=== PATIENT | male | born 1965 | race African-American/Black ===

== ENCOUNTER 2017-07-21 07:39 | Day surgery (SDC) | payer MEDICAID ==
[~2017-07-21] VITALS: Ht 172.7 cm; Wt 71.7 kg
[2017-07-21 08:29] LABS: HEMATOCRIT 47.9 % (42.0-54.0); MCH 29.9 pg (26.0-34.0); MCHC 33.4 g/dL (31.0-37.0); MCV 89.4 fL (80.0-100.0); MEAN PLATELET VOLUME 10.7 fL (7.4-10.4); RBC 5.36 10x6/uL (4.20-6.10); RDW 16.2 % (11.5-14.5); WBC 5.4 10x3/uL (4.8-10.8)
[2017-07-21] MEDS ORDERED: NORVASC10 MG PO (08:36)
[2017-07-21] MEDS ORDERED: PRINIVIL20 MG PO (08:36)
[2017-07-21 08:37] VITALS: BP 102/70; Ht 172.7 cm; Wt 71.7 kg
== END 2017-07-21 10:00 | disposition home or self-care (01) ==
LOC: D.OPS 07:39 → D.PAN 11:00
PROVIDERS: Anesthesiology
DX: K64.9 Unspecified hemorrhoids (principal); Z53.09 Procedure and treatment not carried out because of other contraindication

== ENCOUNTER 2017-07-26 06:56 | Day surgery (SDC) | payer MEDICAID ==
[~2017-07-26] VITALS: Ht 172.7 cm; Wt 71.7 kg
[~2017-07-26 06:56] MED LIST: NORVASC10 MG PO; PRINIVIL20 MG PO
[2017-07-26 07:46] VITALS: BP 103/67; Ht 172.7 cm; Wt 71.7 kg
[2017-07-26 07:46] LABS: HEMATOCRIT 47.5 % (42.0-54.0); MCHC 33.7 g/dL (31.0-37.0); MEAN PLATELET VOLUME 10.5 fL (7.4-10.4); RBC 5.34 10x6/uL (4.20-6.10)
[2017-07-26] MEDS ORDERED: MIRALAX17 GM PO (16:18)
[2017-07-26 17:07] LABS: APTT 28.2 SECONDS (22.8-39.4); PROTIME 12.8 SECONDS (11.6-15.0)
[2017-07-26 17:30] LABS: ALBUMIN 3.2 g/dL (3.4-5.0); BILIRUBIN - DIRECT 0.09 mg/dL (0.00-0.30); BILIRUBIN - INDIRECT 0.5 mg/dL (0.00-1.00); BILIRUBIN - TOTAL 0.59 mg/dL (0.2-1.3); PROTEIN - SERUM 5.7 g/dL (6.4-8.2)
== END 2017-07-26 17:00 | disposition home or self-care (01) ==
LOC: D.OPS 06:56 → D.PAN 09:00 → D.OPS 09:30
PROVIDERS: Anesthesiology; Surgery
DX: C20 Malignant neoplasm of rectum (principal); D12.7 Benign neoplasm of rectosigmoid junction; Z01.812 Encounter for preprocedural laboratory examination

== ENCOUNTER → 2017-08-02 11:52 | Outpatient (CLI) | payer MEDICAID ==
[2017-07-26 07:46] VITALS: BMI 24.0
[~2017-08-02 11:52] MED LIST changes: +MIRALAX17 GM PO
== END | disposition home or self-care (01) ==
LOC: D.CT 11:52
DX: C18.9 Malignant neoplasm of colon, unspecified (principal); K62.5 Hemorrhage of anus and rectum

== ENCOUNTER 2017-08-09 05:29 | Day surgery (SDC) | payer MEDICAID ==
[~2017-08-09] VITALS: Ht 172.7 cm; Wt 71.7 kg
[2017-08-09] MEDS ORDERED: ULTRAM50 MG PO (06:08)
[2017-08-09] MEDS ORDERED: HYDROCODON-ACE1 EAC7 PO (06:08)
[2017-08-09 06:16] VITALS: BP 114/75; Ht 172.7 cm; Wt 71.7 kg
[2017-08-09 06:49] LABS: APTT 22.3 SECONDS (22.8-39.4); INR 0.86 (0.85-1.17); PROTIME 11.3 SECONDS (11.6-15.0)
[2017-08-09 07:08] LABS: BASOPHILS 1.1 % (0-2); EOSINOPHILS 7.8 % (0-7); HEMATOCRIT 40.1 % (42.0-54.0); HEMOGLOBIN 13.3 g/dL (13.5-17.5); IMMATURE GRANULOCYTES 0.2 % (0-5); LYMPHOCYTES 32.4 % (15-50); MCH 29.4 pg (26.0-34.0); MCHC 33.2 g/dL (31.0-37.0); MCV 88.5 fL (80.0-100.0); MEAN PLATELET VOLUME 10.7 fL (7.4-10.4); MONOCYTES 12.5 % (2-11); PLATELET COUNT 256 10x3/uL (130-400); RBC 4.53 10x6/uL (4.20-6.10); RDW 15.1 % (11.5-14.5); WBC 4.5 10x3/uL (4.8-10.8)
== END 2017-08-09 10:30 | disposition home or self-care (01) ==
LOC: D.OPS 05:29 → D.PAN 08:00 → D.OPS 08:00
PROVIDERS: Anesthesiology
DX: C20 Malignant neoplasm of rectum (principal); F17.200 Nicotine dependence, unspecified, uncomplicated; I10 Essential (primary) hypertension; Z01.812 Encounter for preprocedural laboratory examination

== ENCOUNTER → 2018-02-24 08:05 | Outpatient (CLI) | payer MEDICAID ==
[2017-08-09 06:16] VITALS: BMI 24.0
[~2018-02-24 08:05] MED LIST changes: +HYDROCODON-ACE1 EAC7 PO; +ULTRAM50 MG PO
== END | disposition home or self-care (01) ==
LOC: D.MRI 08:05
DX: C20 Malignant neoplasm of rectum (principal)

== ENCOUNTER 2018-03-30 10:00 | Inpatient (IN) | payer MEDICAID ==
[2018-03-29 10:43] LABS: BASOPHILS 0.9 % (0-2); EOSINOPHILS 5.7 % (0-7); HEMATOCRIT 37.1 % (42.0-54.0); HEMOGLOBIN 12.2 g/dL (13.5-17.5); MCH 29.3 pg (26.0-34.0); MCHC 32.9 g/dL (31.0-37.0); MEAN PLATELET VOLUME 10.4 fL (7.4-10.4); MONOCYTES 18.3 % (2-11); NEUTROPHILS 63.1 % (40-80); PLATELET COUNT 254 10x3/uL (130-400); RBC 4.17 10x6/uL (4.20-6.10); RDW 16.1 % (11.5-14.5); WBC 3.5 10x3/uL (4.8-10.8)
[2018-03-29 10:53] LABS: INR 0.94 (0.85-1.17); PROTIME 12.2 SECONDS (11.6-15.0)
[~2018-03-30] VITALS: Ht 172.7 cm; Wt 73.5 kg
--- NOTE | ~2018-03-30 | MORECARE ---
CASE MANAGEMENT DISCHARGE SUMMARY PATIENT: BRITTANI GR UNIT: [id number] ADM DATE: 03/30/18 AGE: 52 : 67 SEX: M ROOM/BED: D.2204 AUTHOR: JAZZY,DOC PHYSICIAN: REFERRING PHYSICIAN: SALEEM RODRIGUEZ MD DATE OF SERVICE: 04/22/18 Discharge Plan Patient Name: BRITTANI GR Facility: [facility]:[place] : 1965 Planned Disposition: Home Health Service Anticipated Discharge Date: Discharge Date: 04/20/2018 Expected LOS: 0 Initial Reviewer: [email or web address] Initial Review Date: 03/30/2018 Generated: 04/22/18 11:41 am Comments DCP- Discharge Planning Updated by [email or web address]: Christianne Galvan on 04/20/18 3:[address] Home wound vac approved/signed via patient and called Pat in [employer] for wound vac. Faxed signed sheet to [facility]. CM will continue to follow and assist with discharge planning/needs. DCP- Discharge Planning Updated by [email or web address]: Moriah Jones on 04/20/18 7:[address] HOME WOUND VAC ORDER, SPOKE WITH BENJAMIN AT [facility] DCP- Discharge Planning Updated by [email or web address]: Moriah Jones on 04/15/18 1:[address] PAMELA WITH WOUND CARE STATED THAT SHE HAS BEEN IN CONTACT WITH JOANNA CONNOLLY ([phone]) WITH [facility] FOR OSTOMY SUPPLIES. THIS IS WHO WE WILL CONTACT WHEN PATIENT IS DISCHARGED FOR SUPPLIES. DCP- Discharge Planning Updated by [email or web address]: Moriah Jones on 03/31/18 3:[address] Patient Name: BRITTANI GR Admission Status: Elective Accout number: [id number] Admission Date: 03-30-2018 : 1965 Admission Diagnosis: Attending: SALEEM RODRIGUEZ Current LOS: 1 Anticipated DC Date: Planned Disposition: Home Health Service Primary Insurance: MEDICAID [place] Discharge Planning Comments: CM met with patient to assess discharge planning needs. Patient stated that he is independent with his care at home and his will be the one to take him home. He has a new OSTOMY and will need home health with ostomy teaching and supplies. I have reached out to the Home Health's to see if they have a trained ostomy nurses. Martha PRETTY has experienced HH and will do teaching. Martha also stated that the DME *[facility] [phone]* takes B[place]. CM will call them about supplies. I also spoke with Anh the wound care nurse and she will also come and do teaching with patient. CM will continue to follow and assist with DC planning Brand Advisor: Moriah Jones DCP- Discharge Planning Updated by [email or web address]: Moriah Jones on 03/31/18 2:[address] attempted to see patient for assessment, pt sleeping will try again at a later time DCPIA - Discharge Planning Initial Assessment Updated by [email or web address]: Moriah Jones on 03/31/18 4:03 pm * Is the patient Alert and Oriented? Yes * How many steps to enter\exit or inside your home? * PCP Dr Mcmahon ([facility]) * Pharmacy [facility] * Preadmission Environment Home with Family * ADLs Independent * List name and contact numbers for known caregivers / representatives who currently or will assist patient after discharge: Tata () [phone] * Verbal permission to speak to the caregivers and representatives has been obtained from the patient. Yes * Community resources currently utilized None * Additional services required to return to the preadmission environment? Yes * Can the patient safely return to the preadmission environment? Yes * Has this patient been hospitalized within the prior 30 days at any hospital? No Last DP export: 04/20/18 3:11 Patient Name: BRITTANI GR Page 43843 at 1042 All edits/amendments must be made on the electronic document DICTATION DATE: 04/22/18 1041 RACING BOARD MARKER: JYOTI 04/22/18 1041 RPT#: [id number] DC DATE:04/20/18 STATUS: DIS IN [facility] [address] [place] [address] END OF REPORT
--- NOTE | ~2018-03-30 | OP ---
PATIENT NAME: BRITTANI GR MEDICAL RECORD: [id number] :[birth year] LOCATION:D.MS [id number] ADMISSION DATE:03/30/18 SURGEON: KACIE HERRERA MD DATE OF OPERATION: 03/30/2018 This is a cosurgeon case. Please see Dr. Rodriguez's note. PREOPERATIVE DIAGNOSIS: Locally advanced anorectal cancer. POSTOPERATIVE DIAGNOSIS: Locally advanced anorectal cancer. PROCEDURE: Abdominoperineal resection with end-colostomy and appendectomy. I did not participate in formation of the colostomy or the appendectomy. My portion of the operation was limited to the perineal approach and resection through the perineum. This is a cosurgeon case of Dr. KOFFI Rodriguez and Dr. Kacie Herrera. OPERATIVE COURSE: The patient was in a lithotomy position with adjustable stirrups. The perineum and abdomen had been sterilely prepped and draped. Dr. Rodriguez was proceeding with the laparotomy. I began by grasping the anus anteriorly and posteriorly with Allis retractors and incising the perianal skin in an oval fashion. I made sure to use the electrocautery to excise the anal sphincteric muscles. I then used a combination of blunt and sharp dissection to proceed to the coccyx posteriorly. I then performed a sharp dissection and some dissection with the open Super Jaw EnSeal device to take down the rectal stalks. I came around laterally around the rectum. Anteriorly, I grasped the anus and rectum and pulled it out, so that the plane between the prostate and the rectum was easily identifiable and I incised this sharply. There was no damage to the prostate gland. I continued my blunt dissection up in the presacral space. I bluntly dissected around the rectum laterally as well. It was at this point that Dr. Rodriguez had freed up almost all of the rectum superiorly. I was able to sofie the stapled off portion of the upper rectum and bring this out through the anus. A few lateral attachments were then divided with the EnSeal device. There had been no violation of the rectum during the resection. Hemostasis was achieved with electrocautery as well as with the EnSeal device. I excised some more of the perianal skin to ensure that we had a free margin. Grossly, it certainly appeared that we had a free margin at the anus. We irrigated with Betadine as well as hydrogen peroxide. The perineal wound was closed in several layers. The cephalad most layer was closed with multiple interrupted horizontal mattress #1 Vicryls. The muscular closure consisted of multiple interrupted horizontal mattress #1 Vicryls. The skin was approximated with multiple interrupted vertical mattress #[address] Rodriguez then was proceeding with closure of the abdomen as well as formation of the colostomy and performance of the appendectomy. TRANSINT:[id number] Voice Confirmation ID: [id number] DOCUMENT ID: [id number] OPERATIVE REPORT [id number] BRITTANI GR ROBERT MD at 1709 CC: SALEEM RODRIGUEZ MD [id number] DICTATION DATE: 04/02/18 1641 SALES REPRESENTATIVE MALT LIQUORS: 04/02/18 2145 ADM IN [facility] [address] [place] [address]
--- NOTE | ~2018-03-30 | MORECARE ---
CASE MANAGEMENT DISCHARGE SUMMARY PATIENT: BRITTANI GR UNIT: [id number] ADM DATE: 03/30/18 AGE: 52 : 67 SEX: M ROOM/BED: D.2204 AUTHOR: JAZZY,DOC PHYSICIAN: REFERRING PHYSICIAN: SALEEM RODRIGUEZ MD DATE OF SERVICE: 04/20/18 Discharge Plan Patient Name: BRITTANI GR Facility: [facility]:[place] : 1965 Planned Disposition: Home Health Service Anticipated Discharge Date: Discharge Date: Expected LOS: Initial Reviewer: [email or web address] Initial Review Date: 03/30/2018 Generated: 04/20/18 10:01 am Comments DCP- Discharge Planning Updated by [email or web address]: Moriah Jones on 04/20/18 7:[address] HOME WOUND VAC ORDER, SPOKE WITH BENJAMIN AT [facility] DCP- Discharge Planning Updated by [email or web address]: Moriah Jones on 04/15/18 1:[address] PAMELA WITH WOUND CARE STATED THAT SHE HAS BEEN IN CONTACT WITH JOANNA CONNOLLY ([phone]) WITH [facility] FOR OSTOMY SUPPLIES. THIS IS WHO WE WILL CONTACT WHEN PATIENT IS DISCHARGED FOR SUPPLIES. DCP- Discharge Planning Updated by [email or web address]: Moriah Jones on 03/31/18 3:[address] Patient Name: BRITTANI GR Admission Status: Elective Accout number: [id number] Admission Date: 03-30-2018 : 1965 Admission Diagnosis: Attending: SALEEM RODRIGUEZ Current LOS: 1 Anticipated DC Date: Planned Disposition: Home Health Service Primary Insurance: MEDICAID [place] Discharge Planning Comments: CM met with patient to assess discharge planning needs. Patient stated that he is independent with his care at home and his will be the one to take him home. He has a new OSTOMY and will need home health with ostomy teaching and supplies. I have reached out to the Home Health's to see if they have a trained ostomy nurses. Martha PRETTY has experienced HH and will do teaching. Martha also stated that the DME *[facility] [phone]* takes [place]. CM will call them about supplies. I also spoke with Anh the wound care nurse and she will also come and do teaching with patient. CM will continue to follow and assist with DC planning Cooler Conveyor Loader: Moriah Jones DCP- Discharge Planning Updated by [email or web address]: Moriah Jones on 03/31/18 2:[address] attempted to see patient for assessment, pt sleeping will try again at a later time DCPIA - Discharge Planning Initial Assessment Updated by [email or web address]: Moriah Jones on 03/31/18 4:03 pm * Is the patient Alert and Oriented? Yes * How many steps to enter\exit or inside your home? * PCP Dr Mcmahon ([facility]) * Pharmacy [facility] * Preadmission Environment Home with Family * ADLs Independent * List name and contact numbers for known caregivers / representatives who currently or will assist patient after discharge: Tata () [phone] * Verbal permission to speak to the caregivers and representatives has been obtained from the patient. Yes * Community resources currently utilized None * Additional services required to return to the preadmission environment? Yes * Can the patient safely return to the preadmission environment? Yes * Has this patient been hospitalized within the prior 30 days at any hospital? No Last DP export: 04/15/18 1:49 Patient Name: BRITTANI GR Page [id number] at 0901 All edits/amendments must be made on the electronic document DICTATION DATE: 04/20/18899 RIVERS [employer] LAKES BOATMAN: JYOTI 04/20/18899 RPT#: [id number] DC DATE: STATUS: ADM IN [facility] [address] [place] [address] END OF REPORT
--- NOTE | ~2018-03-30 | MORECARE ---
CASE MANAGEMENT DISCHARGE SUMMARY PATIENT: BRITTANI GR UNIT: [id number] ADM DATE: 03/30/18 AGE: 52 : 67 SEX: M ROOM/BED: D.2204 AUTHOR: JAZZY,DOC PHYSICIAN: REFERRING PHYSICIAN: SALEEM RODRIGUEZ MD DATE OF SERVICE: 04/04/18 Discharge Plan Patient Name: BRITTANI GR Facility: [facility]:[place] : 1965 Planned Disposition: Home Health Service Anticipated Discharge Date: Discharge Date: Expected LOS: Initial Reviewer: [email or web address] Initial Review Date: 03/30/2018 Generated: 04/04/18 1:17 pm Comments DCP- Discharge Planning Updated by [email or web address]: Moriah Jones on 03/31/18 3:[address] Patient Name: BRITTANI GR Admission Status: Elective Accout number: [id number] Admission Date: 03-30-2018 : 1965 Admission Diagnosis: Attending: SALEEM RODRIGUEZ Current LOS: 1 Anticipated DC Date: Planned Disposition: Home Health Service Primary Insurance: [place]ID [place] Discharge Planning Comments: CM met with patient to assess discharge planning needs. Patient stated that he is independent with his care at home and his will be the one to take him home. He has a new OSTOMY and will need home health with ostomy teaching and supplies. I have reached out to the Home Health's to see if they have a trained ostomy nurses. Martha PRETTY has experienced HH and will do teaching. Martha also stated that the [facility] *[facility] [phone]* takes [facility]. CM will call them about supplies. I also spoke with Anh the wound care nurse and she will also come and do teaching with patient. CM will continue to follow and assist with DC planning Instrumentation Fitter: Moriah Jones DCP- Discharge Planning Updated by [email or web address]: Moriah Jones on 03/31/18 2:[address] attempted to see patient for assessment, pt sleeping will try again at a later time DCPIA - Discharge Planning Initial Assessment Updated by [email or web address]: Moriah Jones on 03/31/18 4:03 pm * Is the patient Alert and Oriented? Yes * How many steps to enter\exit or inside your home? * PCP Dr Mcmahon ([facility]) * Pharmacy [facility] * Preadmission Environment Home with Family * ADLs Independent * List name and contact numbers for known caregivers / representatives who currently or will assist patient after discharge: Tata () [phone] * Verbal permission to speak to the caregivers and representatives has been obtained from the patient. Yes * Community resources currently utilized None * Additional services required to return to the preadmission environment? Yes * Can the patient safely return to the preadmission environment? Yes * Has this patient been hospitalized within the prior 30 days at any hospital? No External Providers External Provider: [facility] [employer] Next Contact Date: Service Request Date: Service Type: Resolution: Reviewer: Comments: Last DP export: 03/31/18 3:33 Patient Name: BRITTANI GR Page [phone] at 1217 All edits/amendments must be made on the electronic document DICTATION DATE: 04/04/181215 FIBERGLASS BONDING MACHINE TENDER: JYOTI 04/04/181215 RPT#: [id number] DC DATE: STATUS: ADM IN [facility] [address] [place] [address] END OF REPORT
--- NOTE | ~2018-03-30 | MORECARE ---
CASE MANAGEMENT DISCHARGE SUMMARY PATIENT: BRITTANI GR UNIT: [id number] ADM DATE: 03/30/18 AGE: 52 : 67 SEX: M ROOM/BED: D.2204 AUTHOR: JAZZY,DOC PHYSICIAN: REFERRING PHYSICIAN: SALEEM RODRIGUEZ MD DATE OF SERVICE: 04/15/18 Discharge Plan Patient Name: BRITTANI GR Facility: [facility]:[place] : 1965 Planned Disposition: Home Health Service Anticipated Discharge Date: Discharge Date: Expected LOS: Initial Reviewer: [email or web address] Initial Review Date: 03/30/2018 Generated: 04/15/18 3:49 pm Comments DCP- Discharge Planning Updated by [email or web address]: Moriah Jones on 04/15/18 1:[address] PAMELA WITH WOUND CARE STATED THAT SHE HAS BEEN IN CONTACT WITH JOANNA CONNOLLY ([phone]) WITH [facility] FOR OSTOMY SUPPLIES. THIS IS WHO WE WILL CONTACT WHEN PATIENT IS DISCHARGED FOR SUPPLIES. DCP- Discharge Planning Updated by [email or web address]: Moriah Jones on 03/31/18 3:[address] Patient Name: BRITTANI GR Admission Status: Elective Accout number: [id number] Admission Date: 03-30-2018 : 1965 Admission Diagnosis: Attending: SALEEM RODRIGUEZ Current LOS: 1 Anticipated DC Date: Planned Disposition: Home Health Service Primary Insurance: MEDICAID [place] Discharge Planning Comments: CM met with patient to assess discharge planning needs. Patient stated that he is independent with his care at home and his will be the one to take him home. He has a new OSTOMY and will need home health with ostomy teaching and supplies. I have reached out to the Home Health's to see if they have a trained ostomy nurses. Martha PRETTY has experienced HH and will do teaching. Martha also stated that the DME *[facility] [phone]* takes [place]. CM will call them about supplies. I also spoke with Anh the wound care nurse and she will also come and do teaching with patient. CM will continue to follow and assist with DC planning Electrolysis Engineer: Moriah Jones DCP- Discharge Planning Updated by [email or web address]: Moriah Jones on 03/31/18 2:[address] attempted to see patient for assessment, pt sleeping will try again at a later time DCPIA - Discharge Planning Initial Assessment Updated by [email or web address]: Moriah Jones on 03/31/18 4:03 pm * Is the patient Alert and Oriented? Yes * How many steps to enter\exit or inside your home? * PCP Dr Mcmahon ([facility]) * Pharmacy [facility] * Preadmission Environment Home with Family * ADLs Independent * List name and contact numbers for known caregivers / representatives who currently or will assist patient after discharge: Tata () [phone] * Verbal permission to speak to the caregivers and representatives has been obtained from the patient. Yes * Community resources currently utilized None * Additional services required to return to the preadmission environment? Yes * Can the patient safely return to the preadmission environment? Yes * Has this patient been hospitalized within the prior 30 days at any hospital? No Last DP export: 04/04/18 11:17 Patient Name: BRITTANI GR Page 83107 at 1449 All edits/amendments must be made on the electronic document DICTATION DATE: 04/15/181448 JOURNEYMAN PIPEFITTER: JYOTI 04/15/181448 RPT#: [id number] DC DATE: STATUS: ADM IN [facility] [address] [place] [address] END OF REPORT
--- NOTE | ~2018-03-30 | MORECARE ---
CASE MANAGEMENT DISCHARGE SUMMARY PATIENT: BRITTANI GR UNIT: [id number] ADM DATE: 03/30/18 AGE: 52 : 67 SEX: M ROOM/BED: D.2204 AUTHOR: JAZZY,DOC PHYSICIAN: REFERRING PHYSICIAN: SALEEM RODRIGUEZ MD DATE OF SERVICE: 04/20/18 Discharge Plan Patient Name: BRITTANI GR Facility: [facility]:[place] : 1965 Planned Disposition: Home Health Service Anticipated Discharge Date: Discharge Date: Expected LOS: Initial Reviewer: [email or web address] Initial Review Date: 03/30/2018 Generated: 04/20/18 5:11 pm Comments DCP- Discharge Planning Updated by [email or web address]: Christianne Galvan on 04/20/18 3:[address] Home wound vac approved/signed via patient and called Pat in [employer] for wound vac. Faxed signed sheet to [facility]. CM will continue to follow and assist with discharge planning/needs. DCP- Discharge Planning Updated by [email or web address]: Moriah Jones on 04/20/18 7:[address] HOME WOUND VAC ORDER, SPOKE WITH BENJAMIN AT [facility] DCP- Discharge Planning Updated by [email or web address]: Moriah Jones on 04/15/18 1:[address] PAMELA WITH WOUND CARE STATED THAT SHE HAS BEEN IN CONTACT WITH JOANNA CONNOLLY ([phone]) WITH [facility] FOR OSTOMY SUPPLIES. THIS IS WHO WE WILL CONTACT WHEN PATIENT IS DISCHARGED FOR SUPPLIES. DCP- Discharge Planning Updated by [id number]: Moriah Jones on 03/31/18 3:[address] Patient Name: BRITTANI GR Admission Status: Elective Accout number: [id number] Admission Date: 03-30-2018 : 1965 Admission Diagnosis: Attending: SALEEM RODRIGUEZ Current LOS: 1 Anticipated DC Date: Planned Disposition: Home Health Service Primary Insurance: MEDICAID [place] Discharge Planning Comments: CM met with patient to assess discharge planning needs. Patient stated that he is independent with his care at home and his will be the one to take him home. He has a new OSTOMY and will need home health with ostomy teaching and supplies. I have reached out to the Home Health's to see if they have a trained ostomy nurses. Martha SUKHWINDER has experienced HH and will do teaching. Martha also stated that the DME *[facility] [phone]* takes [place]. CM will call them about supplies. I also spoke with Anh the wound care nurse and she will also come and do teaching with patient. CM will continue to follow and assist with DC planning Clean Room Technician: Moriah Jones DCP- Discharge Planning Updated by [email or web address]: Moriah Jones on 03/31/18 2:[address] attempted to see patient for assessment, pt sleeping will try again at a later time DCPIA - Discharge Planning Initial Assessment Updated by [email or web address]: Moriah Jones on 03/31/18 4:03 pm * Is the patient Alert and Oriented? Yes * How many steps to enter\exit or inside your home? * PCP Dr Mcmahon ([facility]) * Pharmacy [facility] * Preadmission Environment Home with Family * ADLs Independent * List name and contact numbers for known caregivers / representatives who currently or will assist patient after discharge: Tata () [phone] * Verbal permission to speak to the caregivers and representatives has been obtained from the patient. Yes * Community resources currently utilized None * Additional services required to return to the preadmission environment? Yes * Can the patient safely return to the preadmission environment? Yes * Has this patient been hospitalized within the prior 30 days at any hospital? No Last DP export: 04/20/18 8:01 Patient Name: BRITTANI GR Page 11521 at 1611 All edits/amendments must be made on the electronic document DICTATION DATE: 04/20/181610 HIDE HANDLER: JYOTI 04/20/181610 RPT#: [id number] DC DATE: STATUS: ADM IN [facility] [address] [place] [address] END OF REPORT
[2018-03-30 10:36] VITALS: BP 145/78; BMI 24.6
[2018-03-30 20:29] VITALS: BP 120/79
[2018-03-31] VITALS (18 sets, daily range): BP systolic 108–146; BP diastolic 63–85; Ht 172.7 cm; Wt 73.5 kg
[2018-03-31 06:20] LABS: BASOPHILS 0 % (0-2); EOSINOPHILS 0 % (0-7); IMMATURE GRANULOCYTES 0.2 % (0-5); LYMPHOCYTES 3.6 % (15-50); MCH 29.3 pg (26.0-34.0); MCHC 32.9 g/dL (31.0-37.0); MCV 89.1 fL (80.0-100.0); MONOCYTES 11.3 % (2-11); NEUTROPHILS 84.9 % (40-80); RBC 2.56 10x6/uL (4.20-6.10); RDW 16.5 % (11.5-14.5); WBC 9.8 10x3/uL (4.8-10.8)
[2018-03-31 06:21] LABS: HEMATOCRIT 22.8 % (42.0-54.0); HEMOGLOBIN 7.5 g/dL (13.5-17.5); PLATELET COUNT 198 10x3/uL (130-400)
[2018-03-31 06:30] LABS: ANION GAP 13.5 mmol/L (8-16); CALCIUM 7.5 mg/dL (8.5-10.1); CREATININE - SERUM 1.5 mg/dL (0.6-1.3); MAGNESIUM - SERUM 1.6 mg/dL (1.8-2.4); POTASSIUM - SERUM 4.5 mmol/L (3.5-5.1)
[2018-04-01] VITALS: BP 136/81
[2018-04-01 04:00] VITALS: BP 164/93
[2018-04-01 06:05] LABS: BASOPHILS 0.1 % (0-2); EOSINOPHILS 0.1 % (0-7); HEMATOCRIT 24.8 % (42.0-54.0); HEMOGLOBIN 8.5 g/dL (13.5-17.5); IMMATURE GRANULOCYTES 0.2 % (0-5); LYMPHOCYTES 4.5 % (15-50); MCH 29.4 pg (26.0-34.0); MCHC 34.3 g/dL (31.0-37.0); MEAN PLATELET VOLUME 11.1 fL (7.4-10.4); MONOCYTES 11.9 % (2-11); NEUTROPHILS 83.2 % (40-80); RBC 2.89 10x6/uL (4.20-6.10); RDW 15.7 % (11.5-14.5); WBC 9.4 10x3/uL (4.8-10.8)
[2018-04-01 06:14] LABS: CALCIUM 7.7 mg/dL (8.5-10.1); CARBON DIOXIDE 28.2 mmol/L (21.0-32.0); CHLORIDE - SERUM 105 mmol/L (98-107); MAGNESIUM - SERUM 1.7 mg/dL (1.8-2.4); POTASSIUM - SERUM 3.9 mmol/L (3.5-5.1); SODIUM 138 mmol/L (136-145)
[2018-04-01 06:22] LABS: MCV 85.8 fL (80.0-100.0); PLATELET COUNT 157 10x3/uL (130-400)
[2018-04-01 06:25] LABS: GLUCOSE 135 mg/dL (74-106)
[2018-04-01 06:26] LABS: CALC OSMOLALITY 275 mosm/kg (275-300); CREATININE - SERUM 0.9 mg/dL (0.6-1.3); UREA NITROGEN 7 mg/dL (7-18); eGFR NON AFRICAN AMERICAN > 90 mL/min (90-120)
[2018-04-01 09:12] VITALS: BP 154/97
[2018-04-01 14:01] VITALS: BP 145/86
[2018-04-01 16:49] VITALS: BP 151/82
[2018-04-01 20:00] VITALS: BP 140/84
[2018-04-02] VITALS: BP 103/64
[2018-04-02 04:00] VITALS: BP 123/75
[2018-04-02 05:56] LABS: BASOPHILS 0.1 % (0-2); EOSINOPHILS 1.6 % (0-7); HEMATOCRIT 23.5 % (42.0-54.0); HEMOGLOBIN 7.9 g/dL (13.5-17.5); IMMATURE GRANULOCYTES 0.2 % (0-5); MCH 28.9 pg (26.0-34.0); MCHC 33.6 g/dL (31.0-37.0); MCV 86.1 fL (80.0-100.0); MEAN PLATELET VOLUME 11.2 fL (7.4-10.4); MONOCYTES 8.7 % (2-11); NEUTROPHILS 84.4 % (40-80); PLATELET COUNT 173 10x3/uL (130-400); RBC 2.73 10x6/uL (4.20-6.10); RDW 15.7 % (11.5-14.5); WBC 9.6 10x3/uL (4.8-10.8)
[2018-04-02 06:28] LABS: CALC OSMOLALITY 275 mosm/kg (275-300); CALCIUM 8.4 mg/dL (8.5-10.1); CARBON DIOXIDE 30.7 mmol/L (21.0-32.0); CHLORIDE - SERUM 104 mmol/L (98-107); CREATININE - SERUM 0.9 mg/dL (0.6-1.3); GLUCOSE 100 mg/dL (74-106); POTASSIUM - SERUM 3.9 mmol/L (3.5-5.1); SODIUM 140 mmol/L (136-145); UREA NITROGEN 4 mg/dL (7-18); eGFR NON AFRICAN AMERICAN > 90 mL/min (90-120)
[2018-04-02 12:33] VITALS: BP 145/81
[2018-04-02 17:34] VITALS: BP 155/72
[2018-04-02 19:50] VITALS: BP 150/89
[2018-04-03] VITALS: BP 123/79
[2018-04-03 04:00] VITALS: BP 122/80
[2018-04-03 07:53] LABS: BASOPHILS 0.2 % (0-2); EOSINOPHILS 3.6 % (0-7); HEMATOCRIT 24.5 % (42.0-54.0); HEMOGLOBIN 8.2 g/dL (13.5-17.5); IMMATURE GRANULOCYTES 0.5 % (0-5); LYMPHOCYTES 3.8 % (15-50); MCH 29.2 pg (26.0-34.0); MCHC 33.5 g/dL (31.0-37.0); MCV 87.2 fL (80.0-100.0); MEAN PLATELET VOLUME 11.2 fL (7.4-10.4); MONOCYTES 12.4 % (2-11); NEUTROPHILS 79.5 % (40-80); RBC 2.81 10x6/uL (4.20-6.10); RDW 15.2 % (11.5-14.5); WBC 8.1 10x3/uL (4.8-10.8)
[2018-04-03 07:56] LABS: PLATELET COUNT 229 10x3/uL (130-400)
[2018-04-03 08:14] LABS: CALC OSMOLALITY 275 mosm/kg (275-300); CALCIUM 8.3 mg/dL (8.5-10.1); CARBON DIOXIDE 31.6 mmol/L (21.0-32.0); CHLORIDE - SERUM 104 mmol/L (98-107); GLUCOSE 107 mg/dL (74-106); MAGNESIUM - SERUM 1.9 mg/dL (1.8-2.4); POTASSIUM - SERUM 3.7 mmol/L (3.5-5.1); SODIUM 140 mmol/L (136-145); UREA NITROGEN 4 mg/dL (7-18); eGFR NON AFRICAN AMERICAN 84 mL/min (90-120)
[2018-04-03 08:27] VITALS: BP 124/86
[2018-04-03 12:18] VITALS: BP 141/86
[2018-04-03 16:49] VITALS: BP 135/87
[2018-04-03 20:00] VITALS: BP 152/85
[2018-04-04] VITALS: BP 140/87
[2018-04-04 04:00] VITALS: BP 122/82
[2018-04-04 06:36] LABS: BASOPHILS 0.3 % (0-2); EOSINOPHILS 5.1 % (0-7); HEMATOCRIT 24.4 % (42.0-54.0); HEMOGLOBIN 8.2 g/dL (13.5-17.5); IMMATURE GRANULOCYTES 0.5 % (0-5); LYMPHOCYTES 13.1 % (15-50); MCH 29.5 pg (26.0-34.0); MCHC 33.6 g/dL (31.0-37.0); MCV 87.8 fL (80.0-100.0); MEAN PLATELET VOLUME 10.7 fL (7.4-10.4); MONOCYTES 10.2 % (2-11); NEUTROPHILS 70.8 % (40-80); RBC 2.78 10x6/uL (4.20-6.10); RDW 14.9 % (11.5-14.5); WBC 7.3 10x3/uL (4.8-10.8)
[2018-04-04 06:41] LABS: PLATELET COUNT 298 10x3/uL (130-400)
[2018-04-04 06:48] LABS: CALC OSMOLALITY 276 mosm/kg (275-300); CALCIUM 8.4 mg/dL (8.5-10.1); CARBON DIOXIDE 31.3 mmol/L (21.0-32.0); CHLORIDE - SERUM 104 mmol/L (98-107); CREATININE - SERUM 0.8 mg/dL (0.6-1.3); GLUCOSE 120 mg/dL (74-106); MAGNESIUM - SERUM 1.7 mg/dL (1.8-2.4); POTASSIUM - SERUM 3.7 mmol/L (3.5-5.1); SODIUM 140 mmol/L (136-145); UREA NITROGEN 4 mg/dL (7-18); eGFR NON AFRICAN AMERICAN > 90 mL/min (90-120)
[2018-04-04 07:47] VITALS: BP 156/90
[2018-04-04 11:41] VITALS: BP 172/104
[2018-04-04 20:18] VITALS: BP 160/95
[2018-04-05 04:11] VITALS: BP 184/80
[2018-04-05 08:45] VITALS: BP 171/108
[2018-04-05 10:04] LABS: BASOPHILS 0.1 % (0-2); EOSINOPHILS 0.4 % (0-7); IMMATURE GRANULOCYTES 0.2 % (0-5); LYMPHOCYTES 7.5 % (15-50); MCH 29.1 pg (26.0-34.0); MCHC 33.2 g/dL (31.0-37.0); MCV 87.6 fL (80.0-100.0); MEAN PLATELET VOLUME 10.4 fL (7.4-10.4); MONOCYTES 8.2 % (2-11); NEUTROPHILS 83.6 % (40-80); PLATELET COUNT 319 10x3/uL (130-400); RBC 2.51 10x6/uL (4.20-6.10); RDW 15.1 % (11.5-14.5); WBC 8.3 10x3/uL (4.8-10.8)
[2018-04-05 10:09] LABS: HEMOGLOBIN 7.3 g/dL (13.5-17.5)
[2018-04-05 10:12] LABS: CALCIUM 8.6 mg/dL (8.5-10.1); CARBON DIOXIDE 36.5 mmol/L (21.0-32.0); CHLORIDE - SERUM 96 mmol/L (98-107); GLUCOSE 127 mg/dL (74-106); SODIUM 138 mmol/L (136-145); eGFR NON AFRICAN AMERICAN 75 mL/min (90-120)
[2018-04-05 10:15] LABS: CALC OSMOLALITY 277 mosm/kg (275-300); CREATININE - SERUM 1.1 mg/dL (0.6-1.3); UREA NITROGEN 12 mg/dL (7-18)
[2018-04-05 12:45] VITALS: BP 154/101
[2018-04-05 16:53] VITALS: BP 168/101
[2018-04-05 20:16] VITALS: BP 154/101
[2018-04-06 03:31] VITALS: BP 180/94
[2018-04-06 04:23] LABS: BASOPHILS 0.1 % (0-2); EOSINOPHILS 0.3 % (0-7); IMMATURE GRANULOCYTES 0.4 % (0-5); LYMPHOCYTES 9.4 % (15-50); MCV 87.9 fL (80.0-100.0); MEAN PLATELET VOLUME 10.3 fL (7.4-10.4); NEUTROPHILS 82.8 % (40-80); RDW 15.4 % (11.5-14.5)
[2018-04-06 04:44] LABS: HEMATOCRIT 30.6 % (42.0-54.0); HEMOGLOBIN 10.1 g/dL (13.5-17.5); PLATELET COUNT 440 10x3/uL (130-400); RBC 3.48 10x6/uL (4.20-6.10); WBC 10.5 10x3/uL (4.8-10.8)
[2018-04-06 05:35] LABS: CALCIUM 8.5 mg/dL (8.5-10.1); CARBON DIOXIDE 33.4 mmol/L (21.0-32.0); POTASSIUM - SERUM 4.4 mmol/L (3.5-5.1)
[2018-04-06 05:38] LABS: CREATININE - SERUM 1.6 mg/dL (0.6-1.3)
[2018-04-06 08:42] VITALS: BP 159/105
[2018-04-06 13:03] VITALS: BP 155/84
[2018-04-06 15:39] LABS: BASOPHILS 0.2 % (0-2); EOSINOPHILS 1.8 % (0-7); IMMATURE GRANULOCYTES 0.3 % (0-5); LYMPHOCYTES 13.9 % (15-50); MCH 28.6 pg (26.0-34.0); MCHC 32.6 g/dL (31.0-37.0); MCV 87.7 fL (80.0-100.0); MEAN PLATELET VOLUME 9.5 fL (7.4-10.4); MONOCYTES 6.2 % (2-11); NEUTROPHILS 77.6 % (40-80); PLATELET COUNT 398 10x3/uL (130-400); RDW 15.4 % (11.5-14.5); WBC 9.2 10x3/uL (4.8-10.8)
[2018-04-06 15:44] LABS: HEMATOCRIT 23.6 % (42.0-54.0); HEMOGLOBIN 7.7 g/dL (13.5-17.5); RBC 2.69 10x6/uL (4.20-6.10)
[2018-04-06 15:45] VITALS: BP 108/74
[2018-04-06 16:02] LABS: BILIRUBIN - TOTAL 0.34 mg/dL (0.2-1.3); CALCIUM 7.6 mg/dL (8.5-10.1); CREATININE - SERUM 1.2 mg/dL (0.6-1.3); PROTEIN - SERUM 4.7 g/dL (6.4-8.2)
[2018-04-06 21:47] VITALS: BP 130/89
[2018-04-07 00:58] VITALS: BP 154/84
[2018-04-07 05:11] VITALS: BP 145/96
[2018-04-07 06:23] LABS: BASOPHILS 0.2 % (0-2); EOSINOPHILS 2.4 % (0-7); HEMATOCRIT 27.1 % (42.0-54.0); HEMOGLOBIN 8.7 g/dL (13.5-17.5); IMMATURE GRANULOCYTES 0.3 % (0-5); LYMPHOCYTES 12.9 % (15-50); MCH 28.5 pg (26.0-34.0); MCHC 32.1 g/dL (31.0-37.0); MCV 88.9 fL (80.0-100.0); MONOCYTES 5.5 % (2-11); NEUTROPHILS 78.7 % (40-80); RBC 3.05 10x6/uL (4.20-6.10); RDW 15.3 % (11.5-14.5); WBC 9.9 10x3/uL (4.8-10.8)
[2018-04-07 06:26] LABS: PLATELET COUNT 556 10x3/uL (130-400)
[2018-04-07 06:47] LABS: CALC OSMOLALITY 278 mosm/kg (275-300); CARBON DIOXIDE 35.3 mmol/L (21.0-32.0); CHLORIDE - SERUM 102 mmol/L (98-107); GLUCOSE 130 mg/dL (74-106); POTASSIUM - SERUM 3.6 mmol/L (3.5-5.1); SODIUM 138 mmol/L (136-145); eGFR NON AFRICAN AMERICAN 84 mL/min (90-120)
[2018-04-07 06:49] LABS: UREA NITROGEN 14 mg/dL (7-18)
[2018-04-07 09:10] VITALS: BP 140/101
[2018-04-07 13:20] VITALS: BP 139/93
[2018-04-07 14:24] LABS: MAGNESIUM - SERUM 2.4 mg/dL (1.8-2.4); PHOSPHOROUS 3.4 mg/dL (2.5-4.9)
[2018-04-07 16:45] VITALS: BP 143/91
[2018-04-07 21:17] VITALS: BP 139/88
[2018-04-08 05:01] VITALS: BP 141/88
[2018-04-08 06:02] LABS: BASOPHILS 0.2 % (0-2); EOSINOPHILS 1.7 % (0-7); HEMATOCRIT 26.4 % (42.0-54.0); HEMOGLOBIN 8.5 g/dL (13.5-17.5); IMMATURE GRANULOCYTES 0.5 % (0-5); LYMPHOCYTES 9.6 % (15-50); MCH 28.6 pg (26.0-34.0); MCHC 32.2 g/dL (31.0-37.0); MCV 88.9 fL (80.0-100.0); MONOCYTES 4.7 % (2-11); NEUTROPHILS 83.3 % (40-80); PLATELET COUNT 602 10x3/uL (130-400); RBC 2.97 10x6/uL (4.20-6.10); WBC 12.7 10x3/uL (4.8-10.8)
[2018-04-08 06:12] LABS: CALC OSMOLALITY 288 mosm/kg (275-300); CALCIUM 8.3 mg/dL (8.5-10.1); CARBON DIOXIDE 37.2 mmol/L (21.0-32.0); CHLORIDE - SERUM 104 mmol/L (98-107); CREATININE - SERUM 0.8 mg/dL (0.6-1.3); GLUCOSE 128 mg/dL (74-106); POTASSIUM - SERUM 4.1 mmol/L (3.5-5.1); SODIUM 144 mmol/L (136-145); UREA NITROGEN 13 mg/dL (7-18); eGFR NON AFRICAN AMERICAN > 90 mL/min (90-120)
[2018-04-08 08:23] LABS: MAGNESIUM - SERUM 2.2 mg/dL (1.8-2.4); PHOSPHOROUS 3.2 mg/dL (2.5-4.9)
[2018-04-08 08:43] VITALS: BP 131/89
[2018-04-08 12:30] VITALS: BP 127/80
[2018-04-08 16:52] VITALS: BP 137/83
[2018-04-08 20:00] VITALS: BP 137/80
[2018-04-09] VITALS: BP 146/84
[2018-04-09 04:00] VITALS: BP 147/91
[2018-04-09 06:35] LABS: CALC OSMOLALITY 282 mosm/kg (275-300); CALCIUM 8.2 mg/dL (8.5-10.1); CARBON DIOXIDE 33.1 mmol/L (21.0-32.0); CHLORIDE - SERUM 101 mmol/L (98-107); CREATININE - SERUM 0.8 mg/dL (0.6-1.3); GLUCOSE 149 mg/dL (74-106); POTASSIUM - SERUM 4.1 mmol/L (3.5-5.1); SODIUM 140 mmol/L (136-145); UREA NITROGEN 16 mg/dL (7-18); eGFR NON AFRICAN AMERICAN > 90 mL/min (90-120)
[2018-04-09 06:37] LABS: BASOPHILS 0.1 % (0-2); EOSINOPHILS 0.8 % (0-7); HEMATOCRIT 25.2 % (42.0-54.0); HEMOGLOBIN 8.2 g/dL (13.5-17.5); IMMATURE GRANULOCYTES 0.3 % (0-5); LYMPHOCYTES 7.6 % (15-50); MCH 28.7 pg (26.0-34.0); MCHC 32.5 g/dL (31.0-37.0); MCV 88.1 fL (80.0-100.0); MEAN PLATELET VOLUME 10.3 fL (7.4-10.4); MONOCYTES 3.5 % (2-11); NEUTROPHILS 87.7 % (40-80); PLATELET COUNT 629 10x3/uL (130-400); RBC 2.86 10x6/uL (4.20-6.10); RDW 15.1 % (11.5-14.5); WBC 14.1 10x3/uL (4.8-10.8)
[2018-04-09 09:08] LABS: MAGNESIUM - SERUM 2.4 mg/dL (1.8-2.4); PHOSPHOROUS 3.5 mg/dL (2.5-4.9)
[2018-04-09 09:37] VITALS: BP 136/91
[2018-04-09 16:42] VITALS: BP 139/96
[2018-04-09 19:51] VITALS: BP 147/93
[2018-04-10] VITALS: BP 137/91
[2018-04-10 04:28] LABS: HEMATOCRIT 25.6 % (42.0-54.0); HEMOGLOBIN 8.3 g/dL (13.5-17.5); MCH 28.5 pg (26.0-34.0); MCHC 32.4 g/dL (31.0-37.0); MEAN PLATELET VOLUME 9.7 fL (7.4-10.4); PLATELET COUNT 644 10x3/uL (130-400); RBC 2.91 10x6/uL (4.20-6.10); RDW 15.1 % (11.5-14.5); WBC 20.7 10x3/uL (4.8-10.8)
[2018-04-10 04:34] LABS: BASOPHILS 1 % (0-2); EOSINOPHILS 1 % (0-7); LYMPHOCYTES 6 % (15-50); MONOCYTES 3 % (2-11); NEUTROPHILS 87 % (40-80)
[2018-04-10 04:35] LABS: PLATELET ESTIMATE INCREASED
[2018-04-10 04:52] LABS: CALC OSMOLALITY 283 mosm/kg (275-300); CALCIUM 8.5 mg/dL (8.5-10.1); CARBON DIOXIDE 31.8 mmol/L (21.0-32.0); CHLORIDE - SERUM 101 mmol/L (98-107); CREATININE - SERUM 0.9 mg/dL (0.6-1.3); GLUCOSE 116 mg/dL (74-106); MAGNESIUM - SERUM 2.4 mg/dL (1.8-2.4); PHOSPHOROUS 3.6 mg/dL (2.5-4.9); POTASSIUM - SERUM 3.8 mmol/L (3.5-5.1); SODIUM 141 mmol/L (136-145); UREA NITROGEN 18 mg/dL (7-18); eGFR NON AFRICAN AMERICAN > 90 mL/min (90-120)
[2018-04-10 09:22] VITALS: BP 147/94
[2018-04-10 15:23] VITALS: BP 141/75
[2018-04-10 19:56] VITALS: BP 140/89
[2018-04-11] VITALS: BP 137/89
[2018-04-11 04:07] LABS: BASOPHILS 0.2 % (0-2); EOSINOPHILS 1.8 % (0-7); HEMATOCRIT 23.7 % (42.0-54.0); HEMOGLOBIN 7.6 g/dL (13.5-17.5); IMMATURE GRANULOCYTES 0.3 % (0-5); LYMPHOCYTES 6.7 % (15-50); MCH 28.5 pg (26.0-34.0); MCHC 32.1 g/dL (31.0-37.0); MCV 88.8 fL (80.0-100.0); MONOCYTES 6.3 % (2-11); NEUTROPHILS 84.7 % (40-80); PLATELET COUNT 659 10x3/uL (130-400); RBC 2.67 10x6/uL (4.20-6.10); RDW 15.4 % (11.5-14.5)
[2018-04-11 04:09] LABS: WBC 11.7 10x3/uL (4.8-10.8)
[2018-04-11 06:28] LABS: CALC OSMOLALITY 288 mosm/kg (275-300); CALCIUM 8.4 mg/dL (8.5-10.1); CHLORIDE - SERUM 106 mmol/L (98-107); CREATININE - SERUM 0.8 mg/dL (0.6-1.3); GLUCOSE 139 mg/dL (74-106); MAGNESIUM - SERUM 2.2 mg/dL (1.8-2.4); PHOSPHOROUS 4.1 mg/dL (2.5-4.9); SODIUM 143 mmol/L (136-145); UREA NITROGEN 19 mg/dL (7-18); eGFR NON AFRICAN AMERICAN > 90 mL/min (90-120)
[2018-04-11 06:30] LABS: POTASSIUM - SERUM 4.4 mmol/L (3.5-5.1)
[2018-04-11 08:52] VITALS: BP 152/86
[2018-04-11 12:32] VITALS: BP 134/85
[2018-04-11 16:39] VITALS: BP 147/85
[2018-04-11 21:25] VITALS: BP 132/77
[2018-04-12 05:09] LABS: CALC OSMOLALITY 288 mosm/kg (275-300); CALCIUM 8.3 mg/dL (8.5-10.1); CARBON DIOXIDE 28.4 mmol/L (21.0-32.0); CHLORIDE - SERUM 106 mmol/L (98-107); CREATININE - SERUM 0.9 mg/dL (0.6-1.3); GLUCOSE 102 mg/dL (74-106); MAGNESIUM - SERUM 2.1 mg/dL (1.8-2.4); PHOSPHOROUS 4.4 mg/dL (2.5-4.9); POTASSIUM - SERUM 4.2 mmol/L (3.5-5.1); SODIUM 144 mmol/L (136-145); UREA NITROGEN 17 mg/dL (7-18); eGFR NON AFRICAN AMERICAN > 90 mL/min (90-120)
[2018-04-12 08:07] LABS: BASOPHILS 0.2 % (0-2); EOSINOPHILS 3.4 % (0-7); HEMATOCRIT 24.2 % (42.0-54.0); HEMOGLOBIN 7.6 g/dL (13.5-17.5); IMMATURE GRANULOCYTES 0.1 % (0-5); LYMPHOCYTES 3.5 % (15-50); MCH 28.3 pg (26.0-34.0); MCHC 31.4 g/dL (31.0-37.0); MEAN PLATELET VOLUME 10.4 fL (7.4-10.4); NEUTROPHILS 80.8 % (40-80); PLATELET COUNT 616 10x3/uL (130-400); RBC 2.69 10x6/uL (4.20-6.10); RDW 15.7 % (11.5-14.5); WBC 9.9 10x3/uL (4.8-10.8)
[2018-04-12 08:26] VITALS: BP 145/93
[2018-04-12 12:00] VITALS: BP 126/85
[2018-04-12 16:09] VITALS: BP 137/87
[2018-04-12 21:21] VITALS: BP 142/81
[2018-04-13 05:10] VITALS: BP 139/86
[2018-04-13 06:04] LABS: CALC OSMOLALITY 288 mosm/kg (275-300); CALCIUM 8.5 mg/dL (8.5-10.1); CARBON DIOXIDE 27.6 mmol/L (21.0-32.0); CHLORIDE - SERUM 107 mmol/L (98-107); CREATININE - SERUM 0.9 mg/dL (0.6-1.3); GLUCOSE 90 mg/dL (74-106); MAGNESIUM - SERUM 1.9 mg/dL (1.8-2.4); PHOSPHOROUS 4.4 mg/dL (2.5-4.9); POTASSIUM - SERUM 3.6 mmol/L (3.5-5.1); SODIUM 145 mmol/L (136-145); UREA NITROGEN 13 mg/dL (7-18); eGFR NON AFRICAN AMERICAN > 90 mL/min (90-120)
[2018-04-13 06:55] LABS: BASOPHILS 0.5 % (0-2); EOSINOPHILS 4.5 % (0-7); HEMATOCRIT 21.6 % (42.0-54.0); LYMPHOCYTES 17.1 % (15-50); MCH 27.9 pg (26.0-34.0); MCHC 31.9 g/dL (31.0-37.0); MEAN PLATELET VOLUME 10.6 fL (7.4-10.4); MONOCYTES 7.8 % (2-11); NEUTROPHILS 70.1 % (40-80); PLATELET COUNT 596 10x3/uL (130-400); RBC 2.47 10x6/uL (4.20-6.10); RDW 15.3 % (11.5-14.5)
[2018-04-13 06:56] LABS: HEMOGLOBIN 6.9 g/dL (13.5-17.5); MCV 87.4 fL (80.0-100.0)
[2018-04-13 08:30] VITALS: BP 139/94
[2018-04-13 12:45] VITALS: BP 141/90
[2018-04-13 20:49] VITALS: BP 132/89
[2018-04-14 03:45] VITALS: BP 160/93
[2018-04-14 08:49] VITALS: BP 132/94
[2018-04-14 09:39] LABS: CALCIUM 8.4 mg/dL (8.5-10.1); CARBON DIOXIDE 27.3 mmol/L (21.0-32.0); CHLORIDE - SERUM 105 mmol/L (98-107); CREATININE - SERUM 0.8 mg/dL (0.6-1.3); MAGNESIUM - SERUM 1.7 mg/dL (1.8-2.4); PHOSPHOROUS 4.1 mg/dL (2.5-4.9); POTASSIUM - SERUM 3.9 mmol/L (3.5-5.1); SODIUM 142 mmol/L (136-145); eGFR NON AFRICAN AMERICAN > 90 mL/min (90-120)
[2018-04-14 09:43] LABS: CALC OSMOLALITY 289 mosm/kg (275-300); GLUCOSE 257 mg/dL (74-106); UREA NITROGEN 8 mg/dL (7-18)
[2018-04-14 09:53] LABS: BASOPHILS 0.2 % (0-2); EOSINOPHILS 2.2 % (0-7); IMMATURE GRANULOCYTES 0.2 % (0-5); LYMPHOCYTES 10.4 % (15-50); MCH 28.4 pg (26.0-34.0); MCHC 32.3 g/dL (31.0-37.0); MCV 87.8 fL (80.0-100.0); MEAN PLATELET VOLUME 10.6 fL (7.4-10.4); MONOCYTES 9.3 % (2-11); NEUTROPHILS 77.7 % (40-80); PLATELET COUNT 614 10x3/uL (130-400); RBC 2.96 10x6/uL (4.20-6.10); RDW 14.9 % (11.5-14.5)
[2018-04-14 09:54] LABS: HEMOGLOBIN 8.4 g/dL (13.5-17.5); WBC 9.6 10x3/uL (4.8-10.8)
[2018-04-14 16:45] VITALS: BP 158/93
[2018-04-14 21:05] VITALS: BP 137/85
[2018-04-15 04:35] VITALS: BP 144/88
[2018-04-15 04:40] LABS: BASOPHILS 0.2 % (0-2); EOSINOPHILS 2.6 % (0-7); HEMATOCRIT 25.3 % (42.0-54.0); HEMOGLOBIN 8.2 g/dL (13.5-17.5); IMMATURE GRANULOCYTES 0.2 % (0-5); LYMPHOCYTES 12.4 % (15-50); MCH 28.1 pg (26.0-34.0); MCHC 32.4 g/dL (31.0-37.0); MCV 86.6 fL (80.0-100.0); MEAN PLATELET VOLUME 10.4 fL (7.4-10.4); MONOCYTES 7.8 % (2-11); NEUTROPHILS 76.8 % (40-80); PLATELET COUNT 569 10x3/uL (130-400); RBC 2.92 10x6/uL (4.20-6.10); RDW 14.7 % (11.5-14.5); WBC 9.1 10x3/uL (4.8-10.8)
[2018-04-15 04:51] LABS: CALCIUM 8.3 mg/dL (8.5-10.1); CARBON DIOXIDE 29.5 mmol/L (21.0-32.0); CHLORIDE - SERUM 105 mmol/L (98-107); CREATININE - SERUM 0.9 mg/dL (0.6-1.3); MAGNESIUM - SERUM 1.5 mg/dL (1.8-2.4); PHOSPHOROUS 4.1 mg/dL (2.5-4.9); SODIUM 142 mmol/L (136-145); UREA NITROGEN 9 mg/dL (7-18); eGFR NON AFRICAN AMERICAN > 90 mL/min (90-120)
[2018-04-15 04:55] LABS: CALC OSMOLALITY 284 mosm/kg (275-300); GLUCOSE 157 mg/dL (74-106); POTASSIUM - SERUM 3.1 mmol/L (3.5-5.1)
[2018-04-15 08:21] VITALS: BP 150/87
[2018-04-15 12:09] VITALS: BP 143/89
[2018-04-15 12:36] VITALS: BP 143/89
[2018-04-15 16:30] VITALS: BP 138/88
[2018-04-15 20:24] VITALS: BP 157/94
[2018-04-16 05:02] VITALS: BP 135/92
[2018-04-16 05:43] LABS: BASOPHILS 0.3 % (0-2); EOSINOPHILS 4.6 % (0-7); HEMATOCRIT 25.9 % (42.0-54.0); HEMOGLOBIN 8.5 g/dL (13.5-17.5); IMMATURE GRANULOCYTES 0.4 % (0-5); LYMPHOCYTES 14.7 % (15-50); MCH 28.5 pg (26.0-34.0); MCHC 32.8 g/dL (31.0-37.0); MCV 86.9 fL (80.0-100.0); MEAN PLATELET VOLUME 10.5 fL (7.4-10.4); MONOCYTES 7.9 % (2-11); NEUTROPHILS 72.1 % (40-80); PLATELET COUNT 575 10x3/uL (130-400); RBC 2.98 10x6/uL (4.20-6.10); RDW 14.8 % (11.5-14.5); WBC 6.9 10x3/uL (4.8-10.8)
[2018-04-16 06:14] LABS: CALC OSMOLALITY 279 mosm/kg (275-300); CALCIUM 8.2 mg/dL (8.5-10.1); CARBON DIOXIDE 29.9 mmol/L (21.0-32.0); CHLORIDE - SERUM 105 mmol/L (98-107); CREATININE - SERUM 0.8 mg/dL (0.6-1.3); GLUCOSE 110 mg/dL (74-106); MAGNESIUM - SERUM 1.6 mg/dL (1.8-2.4); PHOSPHOROUS 3.7 mg/dL (2.5-4.9); POTASSIUM - SERUM 3.3 mmol/L (3.5-5.1); SODIUM 141 mmol/L (136-145); UREA NITROGEN 8 mg/dL (7-18); eGFR NON AFRICAN AMERICAN > 90 mL/min (90-120)
[2018-04-16 08:33] VITALS: BP 133/89
[2018-04-16 12:45] VITALS: BP 156/102
[2018-04-16 17:17] VITALS: BP 140/94
[2018-04-16 21:08] VITALS: BP 134/83
[2018-04-17 04:08] LABS: BASOPHILS 0.6 % (0-2); EOSINOPHILS 4.9 % (0-7); HEMATOCRIT 25.9 % (42.0-54.0); HEMOGLOBIN 8.5 g/dL (13.5-17.5); IMMATURE GRANULOCYTES 0.3 % (0-5); MCH 28.3 pg (26.0-34.0); MCHC 32.8 g/dL (31.0-37.0); MCV 86.3 fL (80.0-100.0); MEAN PLATELET VOLUME 9.9 fL (7.4-10.4); MONOCYTES 8.4 % (2-11); NEUTROPHILS 68.8 % (40-80); PLATELET COUNT 550 10x3/uL (130-400); RDW 14.7 % (11.5-14.5)
[2018-04-17 04:28] LABS: CALC OSMOLALITY 278 mosm/kg (275-300); CALCIUM 8.7 mg/dL (8.5-10.1); CARBON DIOXIDE 26.9 mmol/L (21.0-32.0); CHLORIDE - SERUM 107 mmol/L (98-107); CREATININE - SERUM 0.8 mg/dL (0.6-1.3); GLUCOSE 103 mg/dL (74-106); MAGNESIUM - SERUM 1.5 mg/dL (1.8-2.4); PHOSPHOROUS 3.9 mg/dL (2.5-4.9); SODIUM 141 mmol/L (136-145); UREA NITROGEN 7 mg/dL (7-18); eGFR NON AFRICAN AMERICAN > 90 mL/min (90-120)
[2018-04-17 05:16] VITALS: BP 153/96
[2018-04-17 09:38] VITALS: BP 155/93
[2018-04-17 13:20] VITALS: BP 126/87
[2018-04-17 17:39] VITALS: BP 126/80
[2018-04-17 20:00] VITALS: BP 120/78
[2018-04-18] VITALS: BP 135/79
[2018-04-18 04:00] VITALS: BP 128/82
[2018-04-18 04:35] LABS: BASOPHILS 0.3 % (0-2); EOSINOPHILS 4.6 % (0-7); HEMATOCRIT 25.5 % (42.0-54.0); HEMOGLOBIN 8.3 g/dL (13.5-17.5); IMMATURE GRANULOCYTES 0.3 % (0-5); LYMPHOCYTES 15.3 % (15-50); MCH 28.1 pg (26.0-34.0); MCHC 32.5 g/dL (31.0-37.0); MCV 86.4 fL (80.0-100.0); MEAN PLATELET VOLUME 10.4 fL (7.4-10.4); MONOCYTES 6.8 % (2-11); NEUTROPHILS 72.7 % (40-80); PLATELET COUNT 535 10x3/uL (130-400); RBC 2.95 10x6/uL (4.20-6.10); RDW 14.9 % (11.5-14.5); WBC 6.7 10x3/uL (4.8-10.8)
[2018-04-18 04:52] LABS: CALC OSMOLALITY 279 mosm/kg (275-300); CALCIUM 8.6 mg/dL (8.5-10.1); CARBON DIOXIDE 28.6 mmol/L (21.0-32.0); CHLORIDE - SERUM 106 mmol/L (98-107); CREATININE - SERUM 0.8 mg/dL (0.6-1.3); GLUCOSE 130 mg/dL (74-106); MAGNESIUM - SERUM 1.6 mg/dL (1.8-2.4); PHOSPHOROUS 3.8 mg/dL (2.5-4.9); POTASSIUM - SERUM 3.8 mmol/L (3.5-5.1); SODIUM 140 mmol/L (136-145); eGFR NON AFRICAN AMERICAN > 90 mL/min (90-120)
[2018-04-18 04:58] LABS: UREA NITROGEN 9 mg/dL (7-18)
[2018-04-18 07:55] VITALS: BP 148/93
[2018-04-18 12:30] VITALS: BP 121/75
[2018-04-18 15:30] VITALS: BP 122/96
[2018-04-18 21:47] VITALS: BP 134/83
[2018-04-19 05:43] VITALS: BP 128/87
[2018-04-19 08:30] VITALS: BP 130/92
[2018-04-19 08:34] LABS: CALC OSMOLALITY 279 mosm/kg (275-300); CALCIUM 8.4 mg/dL (8.5-10.1); CARBON DIOXIDE 27.5 mmol/L (21.0-32.0); CHLORIDE - SERUM 105 mmol/L (98-107); CREATININE - SERUM 0.8 mg/dL (0.6-1.3); GLUCOSE 95 mg/dL (74-106); MAGNESIUM - SERUM 1.8 mg/dL (1.8-2.4); PHOSPHOROUS 3.9 mg/dL (2.5-4.9); SODIUM 141 mmol/L (136-145); UREA NITROGEN 10 mg/dL (7-18); eGFR NON AFRICAN AMERICAN > 90 mL/min (90-120)
[2018-04-19 12:34] VITALS: BP 131/85
[2018-04-19 15:45] VITALS: BP 116/76
[2018-04-19 20:49] VITALS: BP 123/79
[2018-04-20 00:35] VITALS: BP 131/81
[2018-04-20 04:42] VITALS: BP 148/80
[2018-04-20 06:58] LABS: CALC OSMOLALITY 281 mosm/kg (275-300); CALCIUM 8.6 mg/dL (8.5-10.1); CARBON DIOXIDE 27.5 mmol/L (21.0-32.0); CHLORIDE - SERUM 106 mmol/L (98-107); CREATININE - SERUM 0.8 mg/dL (0.6-1.3); GLUCOSE 97 mg/dL (74-106); MAGNESIUM - SERUM 1.6 mg/dL (1.8-2.4); PHOSPHOROUS 4.1 mg/dL (2.5-4.9); POTASSIUM - SERUM 4.4 mmol/L (3.5-5.1); SODIUM 142 mmol/L (136-145); UREA NITROGEN 11 mg/dL (7-18); eGFR NON AFRICAN AMERICAN > 90 mL/min (90-120)
[2018-04-20 08:33] VITALS: BP 151/84
[2018-04-20] MEDS ORDERED: HYDROCODON-ACE1 EAC7 PO (09:34)
[2018-04-20] MEDS ORDERED: LEVAQUIN250 MG PO (09:36)
[2018-04-20 12:45] VITALS: BP 117/77
== END 2018-04-20 17:17 | disposition home health service (06) | DRG 330 ==
LOC: D.MS 10:00 → D.SDCHOLD 10:00 → D.MS 18:28 → D.SDCHOLD 03-31 11:00 → D.MS 04-04 13:41
PROVIDERS: Anesthesiology; Surgery
PROC: 0D1M0Z4 Bypass Descending Colon to Cutaneous, Open Approach (ICD-10-PCS; 2018-03-30)
PROC: 0DTN0ZZ Resection of Sigmoid Colon, Open Approach (ICD-10-PCS; principal; 2018-03-30 12:15)
PROC: 0DTP0ZZ Resection of Rectum, Open Approach (ICD-10-PCS; 2018-03-30 12:15)
PROC: 0DTQ0ZZ Resection of Anus, Open Approach (ICD-10-PCS; 2018-03-30 12:15)
DX: C21.0 Malignant neoplasm of anus, unspecified (principal); C20 Malignant neoplasm of rectum; D62 Acute posthemorrhagic anemia; N17.9 Acute kidney failure, unspecified; K56.7 Ileus, unspecified; T81.31XA Disruption of external operation (surgical) wound, not elsewhere classified, initial encounter

== ENCOUNTER → 2018-05-04 12:02 | Outpatient (CLI) | payer MEDICAID ==
[2018-03-31 12:48] VITALS: BMI 24.6
[~2018-05-04 12:02] MED LIST changes: +LEVAQUIN250 MG PO
== END | disposition home or self-care (01) ==
LOC: D.LABREF 12:02
DX: R19.7 Diarrhea, unspecified (principal); C19 Malignant neoplasm of rectosigmoid junction; R63.0 Anorexia